=== PATIENT | female | born 1990 | race Caucasian/White ===

== ENCOUNTER 2022-11-05 12:17 | Emergency (ER) | payer MEDICAID ==
[~2022-11-05] VITALS: Ht 160 cm; Wt 124.1 kg
[~2022-11-05 12:17] MED LIST: GLUCOPHAGE1000 MG PO; PROCARDIA XL 6060 MG PO
[2022-11-05 12:30] VITALS: TEMP 98.1
[2022-11-05 13:33] LABS: BASO % 0.2 % (0.0-2.0); EOS # 0.1 K/mm3 (0.0-0.7); EOS % 0.9 % (0.0-4.0); GRAN # 7.1 K/mm3 (1.4-6.5); HEMOGLOBIN 13.7 g/dl (12.5-16.0); LYMPH # 1.4 K/mm3 (1.2-3.4); LYMPH % 15.2 % (20.0-51.0); MEAN CELL VOLUME 83 fl (80.0-100.0); MEAN CORPUSCULAR HEMOGLOBIN 29 pg (27-31); MEAN CORPUSCULAR HGB CONC 34 g/dl (33.0-37.0); MEAN PLATELET VOLUME 9.7 fl (7.4-10.4); MONO # 0.4 K/mm3 (0.1-0.6); MONO % 4.4 % (1.7-9.3); PLATELET COUNT 258 K/mm3 (130-400); RED BLOOD COUNT 4.81 M/mm3 (4.10-5.30); REDCELL DISTRIBUTION WIDTH-CV 13.2 % (11.5-14.5)
[2022-11-05 13:57] LABS: COLLECTION METHOD CLEAN CATCH
[2022-11-05 14:02] LABS: URINE APPEARANCE Clear (CLEAR/HAZY); URINE BLOOD TRACE-INTACT (NEGATIVE); URINE COLOR Yellow (YELLOW); URINE GLUCOSE Negative (NEGATIVE); URINE KETONE Negative (NEGATIVE); URINE NITRATE Negative (NEGATIVE); URINE PROTEIN(semi-quant) Negative (NEGATIVE); URINE UROBILINOGEN 0.2 E.U/dL (0.2-1.0)
[2022-11-05 14:12] LABS: MUCOUS Present (NOT PRESENT); SQUAMOUS EPITHELIAL 0-2 /hpf (0-10); URINE BACTERIA Rare /hpf (NONE SEEN); URINE RBC 0-2 /hpf (0-2)
[2022-11-05 14:24] LABS: ALANINE AMINOTRANSFERASE 18 U/L (0-55); ALBUMIN 3.5 gm/dL (3.5-5.0); ALKALINE PHOSPHATASE 59 U/L (40-150); ANION GAP 9 mmol/L (7-16); AST,SGOT 14 U/L (5-34); BILIRUBIN,TOTAL 0.7 mg/dL (0.2-1.2); BLOOD UREA NITROGEN 5 mg/dL (7-19); CARBON DIOXIDE 22 mmol/L (22-29); CHLORIDE 107 mmol/L (98-107); CREATININE, serum 0.65 mg/dL (0.57-1.11); GLUCOSE 157 mg/dL (70-99); POTASSIUM 3.4 mmol/L (3.5-4.5); SODIUM 138 mmol/L (136-145)
[2022-11-05] MEDS ORDERED: NORMODYNE200 MG PO (14:30)
[2022-11-05 15:01] LABS: HCG,QUANTITATIVE 99403 mIU/mL
[2022-11-05 15:13] LABS: TROPONIN-I < 0.010 ng/mL (0.00-0.033)
[2022-11-05 15:55] VITALS: BP 145/78; PULSE 74
== END 2022-11-05 15:42 | disposition home or self-care (01) ==
LOC: COL.ER 12:17
PROVIDERS: Emergency Medicine
DX: O16.1 Unspecified maternal hypertension, first trimester (principal); Z28.310 Unvaccinated for COVID-19; Z3A.11 11 weeks gestation of pregnancy
CPT/HCPCS: J2550; J7030

== ENCOUNTER 2023-11-27 15:58 | Outpatient (RCR) | payer MEDICAID ==
[~2023-11-27 15:58] MED LIST changes: +ADALAT CC90 MG PO; +ASPIRIN 81M81 MG/TA2 PO; +FLOVENT DI100 MCG/Ac IH; +HUMULIN N PE100 U/ML SQ; +INSULIN LI100 UNIT/2 SQ; +NORMODYNE200 MG PO; +PRENATAL TABLET PO; +PRIL40 PO; +PRISTIQ100 MG PO; +SINGULAIR 110 MG/TAB PO; +TRANDATE 200MG200 MG PO; +UNISOM25 MG PO
== END 2023-12-21 | disposition home or self-care (01) ==
LOC: MKS.ESL.PT
DX: M25.562 Pain in left knee (principal); M25.561 Pain in right knee